=== PATIENT | male | born 1955 | race Caucasian/White ===

== ENCOUNTER 2024-12-23 00:09 | Inpatient (IN) | payer MEDICARE ==
--- NOTE | 2024-12-23 01:50 | ED ---
Chest Pain HPI - General Chief Complaint: Chest Pain Stated Complaint: Chest Pain Time Seen by Provider: 12/23/24 01:43 Source: patient, RN notes reviewed Mode of arrival: ambulatory Limitations: no limitations - History of Present Illness Initial Comments: 69-year-old male with coronary artery disease and carotid artery stenosis presents emergency department for substernal chest pain that woke him from sleep at 2240 on 12/22/2024. He states did that this pain felt like a pressure with mild radiation into his right arm. Pressure was not associated with diaphoresis or nausea. States that the pressure lasted for approximately 40 minutes however is resolved and currently patient is chest pain-free. States that at the time of the pressure he had mild dyspnea. Over the past few weeks he has been experiencing dyspnea on exertion that is exacerbated in the cold weather. Denies orthopnea. 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 Patient is prescribed nitro for his chest pain however states that he did not take this medication when chest pain arose. - Related Data Home Medications Medication Instructions Recorded Confirmed Aspirin EC [Ecotrin Low Dose] 81 mg PO DAILY 12/23/24 12/23/24 Atorvastatin [Lipitor] 80 mg PO DAILY 12/23/24 12/23/24 Clopidogrel [Plavix] 75 mg PO DAILY 12/23/24 12/23/24 Enalapril/Hydrochlorothiazide 2 tab PO DAILY 12/23/24 12/23/24 [Vaseretic 10-25 mg Tablet] Nitroglycerin Sl Tabs [Nitrostat] 0.4 mg SUBLINGUAL Q5M PRN 12/23/24 12/23/24 carvediloL [Coreg] 25 mg PO BID 12/23/24 12/23/24 Allergies Allergy/AdvReac Type Severity Reaction Status Date / Time No Known Allergies Allergy Verified 12/23/24 10:18 Review of Systems ROS Statement: Those systems with pertinent positive or pertinent negative responses have been documented in the HPI. ROS Other: All systems not noted in ROS Statement are negative. Past Medical History Past Medical History: Chest Pain / Angina, Hypertension History of Any Multi-Drug Resistant Organisms: None Reported Past Surgical History: No Surgical Hx Reported Past Psychological History: No Psychological Hx Reported Smoking Status: Current some day smoker Past Alcohol Use History: Occasional Past Drug Use History: None Reported General Exam Limitations: no limitations General appearance: alert, in no apparent distress ENT exam: Present: normal exam, mucous membranes moist Neck exam: Present: normal inspection. Absent: tenderness, meningismus, lymphadenopathy Respiratory exam: Present: normal lung sounds bilaterally. Absent: respiratory distress, wheezes, rales, rhonchi, stridor Cardiovascular Exam: Present: regular rate, normal rhythm, normal heart sounds. Absent: systolic murmur, diastolic murmur, rubs, gallop, clicks GI/Abdominal exam: Present: soft, normal bowel sounds. Absent: distended, tenderness, guarding, rebound, rigid Extremities exam: Present: normal inspection, full ROM, normal capillary refill. Absent: tenderness, pedal edema, joint swelling, calf tenderness Back exam: Present: normal inspection Course Vital Signs 12/23/24 12/23/24 12/23/24 00:16 03:00 06:00 Temperature 98.3 F Pulse Rate 87 67 68 Respiratory 16 18 17 Rate Blood Pressure 158/105 156/97 139/93 O2 Sat by Pulse 98 98 98 Oximetry 12/23/24 12/23/24 12/23/24 09:00 10:25 12:58 Temperature Pulse Rate 81 70 Respiratory 18 18 Rate Blood Pressure 208/124 152/88 140/95 O2 Sat by Pulse 98 Oximetry 12/23/24 13:41 Temperature Pulse Rate 64 Respiratory 18 Rate Blood Pressure 125/87 O2 Sat by Pulse 97 Oximetry Chest Pain MDM - MDM Was pt. sent in by a medical professional or institution (ISAIAS Cruz, CLIENT SUPPORT REPRESENTATIVE, urgent care, hospital, or half-way...) When possible be specific @ -No Did you speak to anyone other than the patient for history (EMS, parent, family, police, friend...)? What history was obtained from this source @ -No Did you review nursing and triage notes (agree or disagree)? Why? @ -I reviewed and agree with nursing and triage notes Were old charts reviewed (outside hosp., previous admission, EMS record, old EKG, old radiological studies, urgent care reports/EKG's, half-way records)? Report findings @ -No old charts were reviewed Differential Diagnosis (chest pain, altered mental status, abdominal pain women, abdominal pain men, vaginal bleeding, weakness, fever, dyspnea, syncope, headache, dizziness, GI bleed, back pain, seizure, CVA, palpatations, mental health, musculoskeletal)? @ -Differential Chest Pain: Stable Angina, Unstable Angina, STEMI, NSTEMI Aortic Dissection, Pneumothorax, Musculoskeletal, Esophageal Spasm GERD, Cholecystitis, Pancreatitis, Zoster, this is not meant to be an all-inclusive list. EKG interpreted by me (3pts min.). @ -Completed at 00 22 sinus rhythm with a ventricular rate of 78, OK interval 194, QRS 85, QTc 406. X-rays interpreted by me (1pt min.). @ -Chest x-ray completed with no acute cardiopulmonary process. CT interpreted by me (1pt min.). @ -None done U/S interpreted by me (1pt. min.). @ -None done What testing was considered but not performed or refused? (CT, X-rays, U/S, labs)? Why? @ -None What meds were considered but not given or refused? Why? @ -None Did you discuss the management of the patient with other professionals (professionals i.e. , PA, CLIENT SUPPORT REPRESENTATIVE, lab, RT, psych nurse, social and human services assistant, sample collector, teacher, parking enforcement officer, case management associate)? Give summary @ -EMH for admission Was smoking cessation discussed for >3mins.? @ -No Was critical care preformed (if so, how long)? @ -No Were there social determinants of health that impacted care today? How? (Homelessness, low income, unemployed, alcoholism, drug addiction, transportation, low edu. Level, literacy, decrease access to med. care, fdc, rehab)? @ -No Was there de-escalation of care discussed even if they declined (Discuss DNR or withdrawal of care, Hospice)? DNR status @ -No What co-morbidities impacted this encounter? (DM, HTN, Smoking, COPD, CAD, Cancer, CVA, ARF, Chemo, Hep., AIDS, mental health diagnosis, sleep apnea, morbid obesity)? @ -None Was patient admitted / discharged? Hospital course, mention meds given and route, prescriptions, significant lab abnormalities, going to OR and other pertinent info. @ -Admitted. 69-year-old male presenting with substernal chest pain. Patient noted be hypertensive on arrival with a blood pressure of 158/105. Overall he is well-appearing and is resting to be chest pain-free. Patient will undergo ACS evaluation including labs, chest x-ray and EKG. EKG is in sinus rhythm. Patient's labs concerning for an NSTEMI with a troponin of 0.096. Patient is agreeable with admission. Will continue to trend troponin enzyme. Additionally, patient provided with aspirin and will be initiated on low intensity heparin with consult to cardiology placed. Undiagnosed new problem with uncertain prognosis? @ -No Drug Therapy requiring intensive monitoring for toxicity (Heparin, Nitro, Insulin, Cardizem)? @ -No Were any procedures done? @ -No Diagnosis/symptom? @ -NSTEMI Acute, or Chronic, or Acute on Chronic? @ -Acute Uncomplicated (without systemic symptoms) or Complicated (systemic symptoms)? @ -Complicated Side effects of treatment? @ -No Exacerbation, Progression, or Severe Exacerbation? @ -No Poses a threat to life or bodily function? How? (Chest pain, USA, VT, pneumonia, PE, COPD, DKA, ARF, appy, cholecystitis, CVA, Diverticulitis, Homicidal, Suicidal, threat to staff... and all critical care pts) @ -No Disposition Clinical Impression: NSTEMI (non-ST elevated myocardial infarction) Disposition: ADMITTED IP TO THIS HOSP Condition: Serious Decision to Admit Reason: Admit from EC
[2024-12-23 02:49] LABS: Basophils # (A) 0.1 k/uL (0-0.2); Basophils % (A) 1 %; Eosinophils # (A) 0.3 k/uL (0-0.7); Eosinophils % (A) 3 %; HCT 45.7 % (39.0-53.0); HGB 14.7 gm/dL (13.0-17.5); Lymphocytes # (A) 2.5 k/uL (1.0-4.8); Lymphocytes % (A) 25 %; MCH 28.8 pg (25.0-35.0); MCHC 32.2 g/dL (31.0-37.0); MCV 89.4 fL (80.0-100.0); Mean Platelet Volume 7.4; Monocytes # (A) 0.7 k/uL (0-1.0); Monocytes % (A) 7 %; Neutrophils # (A) 6.3 k/uL (1.3-7.7); Neutrophils % (A) 63 %; Platelet Count 221 k/uL (150-450); RBC 5.11 m/uL (4.30-5.90); RDW 13.4 % (11.5-15.5); WBC 10.1 k/uL (3.8-10.6)
[2024-12-23 03:04] LABS: Prothrombin Time 11.1 sec (10.0-12.5)
[2024-12-23 03:06] LABS: ALT 21 U/L (4-49); AST 21 U/L (17-59); African American GFR (CKD) 79 (>60 ml/min/1.73 sqM); Albumin 4.2 g/dL (3.5-5.0); Alkaline Phosphatase 54 U/L (38-126); Anion Gap 8 mmol/L; Blood Urea Nitrogen 35 mg/dL (9-20); Calcium 9.5 mg/dL (8.4-10.2); Carbon Dioxide 25 mmol/L (22-30); Chloride 104 mmol/L (98-107); Glucose 98 mg/dL (74-99); Lipase 189 U/L (23-300); Magnesium 2.2 mg/dL (1.6-2.3); Non-African American GFR(CKD) 69 (>60 ml/min/1.73 sqM); Potassium 4.4 mmol/L (3.5-5.1); Sodium 137 mmol/L (137-145); Total Bilirubin 0.5 mg/dL (0.2-1.3); Total Protein 7.1 g/dL (6.3-8.2)
[2024-12-23] MEDS ORDERED: MORPHINE SULFATE 4 MG/ML SYRINGE IV PRN (03:24)
[2024-12-23] MEDS ORDERED: ONDANSETRON 4 MG/2 ML VIAL IVP PRN (03:24)
[2024-12-23] MEDS ORDERED: ACETAMINOPHEN TAB 325 MG TAB PO PRN (03:24)
[2024-12-23] MEDS ORDERED: NALOXONE 0.4 MG/ML 1 ML VIAL IV PRN (03:24)
[2024-12-23] MEDS: HEPARIN SOD,PORK IN 0.45% NACL 25,000 UNIT in 0.45% NACL 1 250ML.BAG IV SCH (03:47)
[2024-12-23] MEDS: HEPARIN SODIUM 1,000 UN/ML (10ML VL) IV ONE (03:48)
[2024-12-23] MEDS: ASPIRIN 81 MG PO STA (03:50)
--- NOTE | 2024-12-23 04:06 | XR ---
EXAM: XR Chest, 2 Views CLINICAL HISTORY: ITS.REASON XR Reason: Chest Pain TECHNIQUE: Frontal and lateral views of the chest. COMPARISON: No relevant prior studies available. FINDINGS: Lungs: Unremarkable. No consolidation. Pleural space: Unremarkable. No pneumothorax. Heart: Unremarkable. No cardiomegaly. Mediastinum: Unremarkable. Bones/joints: Unremarkable. IMPRESSION: No consolidation.
[2024-12-23] MEDS ORDERED: ALPRAZolam 0.5 MG TAB PO PRN (08:53)
[2024-12-23] MEDS ORDERED: NITROGLYCERIN SL TABS 0.4 MG TAB SUBLINGUAL PRN (08:53)
[2024-12-23] MEDS ORDERED: ALPRAZolam 0.25 MG TAB PO PRN (08:53)
[2024-12-23] MEDS: ATORVASTATIN 80 MG TAB PO STA (09:09)
[2024-12-23] MEDS: ASPIRIN 81 MG PO SCH (09:09)
[2024-12-23] MEDS: carvediloL 12.5 MG TAB PO SCH (09:09)
[2024-12-23] MEDS: ASPIRIN 325 MG TAB PO STA (09:09)
[2024-12-23] MEDS: hydrALAZINE HCL 25 MG TAB PO STA (09:20)
[2024-12-23] MEDS: LISINOPRIL-HCTZ 20-25 MG 1 EACH TAB PO SCH (09:20)
[2024-12-23 09:30] LABS: Chol/HDL Ratio 4.55 Ratio; VLDL Calculation 11.72 mg/dL (5.00-40.00)
--- NOTE | 2024-12-23 10:11 | P.CRDCN ---
History of Present Illness History of present illness: HISTORY OF PRESENT ILLNESS: This is a 69-year-old male with a past medical history significant for hypertension, carotid stenosis with previous right carotid endarterectomy, and occasional cigar use. Patient follows in the office with Dr. Covarrubias. We have been asked to see the patient in consultation for non-STEMI. Patient examined at the bedside in the emergency room. Patient states he was sleeping when he was awoken with chest discomfort. He states that he was having chest pressure in the middle of his chest that radiated into his right arm. He also reports feeling short of breath. He states the pain lasted for about 45 minutes. He decided to come to the emergency room for further evaluation. Patient was found to have elevated troponins and was started on IV heparin. He denies any further episodes of chest discomfort since being in the hospital. Patient recently esta blished in the office with Dr. Covarrubias and was supposed to follow-up today in the office for results of his stress test and carotid Doppler DIAGNOSTICS: - EKG reveals sinus mechanism with no signs of acute ischemia. Baseline artifact.. - Chest xray negative for acute process. - Laboratory data: WBC 10.1. Hemoglobin 14.7. Platelet count 221. Sodium 137. Potassium 4.4. BUN 35. Creatinine 1.11. Magnesium 2.2. Troponin 0.096. 0.346. - Current home cardiac medications include aspirin 81 mg daily, atorvastatin 40 mg at night, carvedilol 25 mg twice a day, and enalaprilhydrochlorothiazide 10- 25 mg daily. - Carotid Doppler performed in the office on 12/10/2024 revealed less than 50% stenosis of bilateral internal carotid arteries REVIEW OF SYSTEMS: At the time of my exam: CONSTITUTIONAL: Denies fever or chills. HEENT: Denies blurred vision, vision changes, or eye pain. Denies hemoptysis CARDIOVASCULAR: Denies chest pain. Denies orthopnea. Denies PND. Denies palpitations RESPIRATORY: Denies shortness of breath. GASTROINTESTINAL: Denies abdominal pain. Denies nausea or vomiting. HEMATOLOGIC: Denies bleeding disorders. GENITOURINARY: Denies any blood in urine. SKIN: Denies pruitis. Denies rash. PHYSICAL EXAM: VITAL SIGNS: Reviewed. GENERAL: Well-developed in no acute distress. HEENT: Head is normocephalic. Pupils are equal, round. Sclerae anicteric. Mucous membranes of the mouth are moist. Neck supple. No JVD or thyromegaly LUNGS: Respirations even and unlabored. Lungs essentially clear to auscultation bilaterally. HEART: Regular rate and rhythm. S1 and S2 heard. ABDOMEN: Soft. Nondistended. Nontender. EXTREMITIES: Normal range of motion. No clubbing or cyanosis. Peripheral pulses intact. No lower extremity edema NEUROLOGIC: Awake and alert. Oriented x 3. ASSESSMENT: Non-STEMI Hypertension History of carotid stenosis with previous right carotid endarterectomy, 2017 Occasional cigar use PLAN: Obtain 2D echo to assess cardiac structure and function Resume home cardiac medications including aspirin, atorvastatin, carvedilol, and enalaprilhydrochlorothiazide Continue IV heparin Patient to undergo cardiac catheterization today with Dr. Covarrubias Further recommendations pending patient course Nurse practitioner note has been reviewed by physician. Signing provider agrees with the documented findings, assessment, and plan of care documented by ACCURACY EXPERT as a scribe. Past Medical History Past Medical History: Chest Pain / Angina, Hypertension History of Any Multi-Drug Resistant Organisms: None Reported Past Surgical History: No Surgical Hx Reported Past Psychological History: No Psychological Hx Reported Smoking Status: Current some day smoker Past Alcohol Use History: Occasional Past Drug Use History: None Reported Medications and Allergies Allergies Allergy/AdvReac Type Severity Reaction Status Date / Time No Known Allergies Allergy Verified 12/23/24 00:22 Physical Exam Vitals: Vital Signs Temp Pulse Resp BP Pulse Ox 12/23/24 06:00 68 17 139/93 98 12/23/24 03:00 67 18 156/97 98 12/23/24 00:16 98.3 F 87 16 158/105 98 Intake and Output 12/22/24 12/23/24 12/23/24 22:59 06:59 14:59 Other: Weight 90.718 kg Results 12/23/24 02:12 12/23/24 02:12 Cardiac Enzymes 12/23/24 12/23/24 12/23/24 Range/Units 02:12 02:12 05:44 AST 21 (17-59) U/L Troponin I 0.096 H* 0.346 H* (0.000-0.034) ng/mL Coagulation 12/23/24 Range/Units 02:12 PT 11.1 (10.0-12.5) sec APTT 24.0 (22.0-30.0) sec CBC 12/23/24 Range/Units 02:12 WBC 10.1 (3.8-10.6) k/uL RBC 5.11 (4.30-5.90) m/uL Hgb 14.7 (13.0-17.5) gm/dL Hct 45.7 (39.0-53.0) % Plt Count 221 (150-450) k/uL Comprehensive Metabolic Panel 12/23/24 Range/Units 02:12 Sodium 137 (137-145) mmol/L Potassium 4.4 (3.5-5.1) mmol/L Chloride 104 (98-107) mmol/L Carbon Dioxide 25 (22-30) mmol/L BUN 35 H (9-20) mg/dL Creatinine 1.11 (0.66-1.25) mg/dL Glucose 98 (74-99) mg/dL Calcium 9.5 (8.4-10.2) mg/dL AST 21 (17-59) U/L ALT 21 (4-49) U/L Alkaline Phosphatase 54 (38-126) U/L Total Protein 7.1 (6.3-8.2) g/dL Albumin 4.2 (3.5-5.0) g/dL Current Medications Generic Name Dose Route Start Last Admin Trade Name Freq PRN Reason Stop Dose Admin Acetaminophen 650 mg 12/23/24 03:24 Acetaminophen Tab 325 Mg Tab PO Q6HR PRN Mild Pain or Fever > 100.5 Heparin Sodium (Porcine) 0 unit 12/23/24 03:26 Heparin Sodium 1,000 Un/Ml (10ml Vl) IV PER PROTOCOL PRN Low PTT Protocol Heparin Sodium/Sodium Chloride 250 mls @ 9.997 mls/hr 12/23/24 03:30 12/23/24 03:47 25,000 unit/ Sodium Chloride IV 11.02 units/kg/hr .Q24H GLYNN 9.997 mls/hr Administration Protocol 11.02 UNITS/KG/HR Morphine Sulfate 4 mg 12/23/24 03:24 Morphine Sulfate 4 Mg/Ml Syringe IV Q4HR PRN Severe Pain (Scale 7 to 10) Naloxone HCl 0.2 mg 12/23/24 03:24 Naloxone 0.4 Mg/Ml 1 Ml Vial IV Q2M PRN Opioid Reversal Ondansetron HCl 4 mg 12/23/24 03:24 Ondansetron 4 Mg/2 Ml Vial IVP Q8HR PRN Nausea And Vomiting Intake and Output 12/22/24 12/23/24 12/23/24 22:59 06:59 14:59 Other: Weight 90.718 kg 12/23/24 02:12 12/23/24 02:12
[2024-12-23] MEDS: SODIUM CHLORIDE 0.9% 1,000 ML in EMPTY BAG 1 BAG IV SCH (11:30)
[2024-12-23] MEDS: HEPARIN SODIUM 1,000 UN/ML (10ML VL) IV PRN (12:04)
[2024-12-23] MEDS: amLODIPine 10 MG TAB PO SCH (13:54)
[2024-12-23] MEDS: MIDAZOLAM 2 MG/2 ML VIAL IVP ONE (14:46)
[2024-12-23] MEDS: fentaNYL (PF) 50 MCG/1 ML VIAL IVP ONE (14:46)
[2024-12-23] MEDS: LIDOCAINE 1% INJ 10MG/ML (30 ML VIAL-PF) SQ ONE ×2 (14:46→14:48)
[2024-12-23] MEDS: VERAPAMIL SYRINGE (5 MG/10 ML) INTRAARTER ONE (14:48)
--- NOTE | 2024-12-23 15:13 | P.HPIM ---
History of Present Illness H&P Date: 12/23/24 Chief Complaint: Chest pain Patient is a this is a 69-year-old male with a history of hypertension presents the ER with sudden onset substernal chest pain which woke him up around 9 PM yesterday evening. Patient reports that he felt pressure-like substernal chest pain, 9 out of 10, nonradiating, associated with mild shortness of breath and feeling cold. Patient has been experiencing intermittent chest pain for the past couple months associated with exertion. Patient reports that he fell substernal chest pain in the gym while he was doing elliptical exercise. Makenzie rodriguez had a cardiac evaluation 3 to 4 years [address] done by Dr[address] Fuller where he found to have LAD pathology. Patient denies any history of CAD and or CVA. Strong family history of ID and stroke in father and brother. Patient is a chronic cigarette smoker. Drinks alcohol occasionally. Denies use of rec reational drugs. Initial laboratory evaluation shows troponin I 0.096, 0.346, 0.294. WBC 10.1, hemoglobin 14.7, platelet count 221, sodium 137, potassium 4.4, chloride 104, bicarb 25, BUN 35, creatinine 1.1. EKG shows sinus rhythm with ventricular rate of 78 bpm, IL interval 194, QRS duration 85, QTc 4 6. Poor R wave progression. Nonspecific ST/T wave changes noted. Chest x-ray shows no acute cardiopulmonary process. Vital signs on arrival shows temperature 98.3 F, pulse rate 87, blood pressure 158/105, oxygen saturation 98% on room air. Review of systems: Pertinent positives and negatives as discussed in HPI, a complete review of systems was performed and all other systems are negative. Social history: As above in HPI Family History: As above in HPI Physical examination: Vital signs reviewed General: non toxic, no distress, appears at stated age, overweight Derm: no unusual rashes/lesions, warm Head: atraumatic, normocephalic, symmetric Eyes: EOMI, no lid lag, anicteric sclera, pupils equal round reactive to light ENT: Nose and ears atraumatic Neck: No cervical lymphadenopathy, trachea midline, supple Mouth: no lip lesion, mucus membranes moist Cardiovascular: S1S2 reg, no murmur, positive dorsalis pedis pulse bilateral, no edema Lungs: CTA bilateral, no rhonchi, no rales, no accessory muscle use Abdominal: soft, nontender to palpation, no guarding Ext: muscle strength 5 out of 5 in all 4 extremities grossly, no gross muscle atrophy, no contractures, Neuro: CN II-XI grossly intact, no gross focal neuro deficits Psych: Alert, oriented, appropriate affect Assessment/Plan: This is a Patient is a this is a 69-year-old male with a history of hypertension presents the ER with sudden onset substernal chest pain which woke him up around 9 PM yesterday evening. . Case was discussed with the Emergency Room provider and decision was made to admit the patient for NSTEMI. Labs and images: Laboratory evaluation shows troponin I 0.096, 0.346, 0.294. WBC 10.1, hemoglobin 14.7, platelet count 221, sodium 137, potassium 4.4, chloride 104, bi carb 25, BUN 35, creatinine 1.1. EKG shows sinus rhythm with ventricular rate of 78 bpm, IL interval 194, QRS duration 85, QTc 4 6. Poor R wave progression. Nonspecific ST/T wave changes noted. Chest x-ray shows no acute cardiopulmonary process. Active: #NSTEMI Aspirin 81 mg p.o. daily Lipitor 80 mg p.o. at bedtime IV morphine 4 mg as needed Oxygen therapy as needed Carvedilol 25 mg p.o. twice daily Heparin drip RIGOBERTO risk score for NSTEMI is 4 points which is 20% risk at 14 days for all cause mortality. Consult cardiology Order lipid panel Order echocardiogram Heart healthy diet CBC and BMP tomorrow a.m. #Hypertension Amlodipine 10 mg p.o. daily LisinoprilHCTZ 20-25 mg p.o. daily DVT prophylaxis: Heparin drip GI prophylaxis: None F: None E: Replete as needed N: Heart healthy diet A: Ambulatory at baseline The patient is admitted with an anticipated < than 2 midnight stay for evaluation of NSTEMI CODE STATUS: Full code Discussed with: Patient Anticipated discharge place: Pending clinical course Dictation was produced using Tagged dictation software. Please excuse any grammatical, word or spelling errors. Attestation I have seen and examined this patient with my resident , discussed the same with the resident/SIDNEY, and agree with the dictator's assessment and plan as written GENERAL: The patient is alert and oriented x3, not in any acute distress. Well developed, well nourished. HEENT: Pupils are round and equally reacting to light. EOMI. No scleral icterus. No conjunctival pallor. Normocephalic, atraumatic. No pharyngeal erythema. No thyromegaly. CARDIOVASCULAR: S1 and S2 present. No murmurs, rubs, or gallops. PULMONARY: Chest is clear to auscultation, no wheezing or crackles. ABDOMEN: Soft, nontender, nondistended, normoactive bowel sounds. No palpable organomegaly. MUSCULOSKELETAL: No joint swelling or deformity. EXTREMITIES: No cyanosis, clubbing, or pedal edema. NEUROLOGICAL: Gross neurological examination did not reveal any focal deficits. SKIN: No rashes. Dr. Sagar lan Past Medical History Past Medical History: Chest Pain / Angina, Hypertension History of Any Multi-Drug Resistant Organisms: None Reported Past Surgical History: No Surgical Hx Reported Past Psychological History: No Psychological Hx Reported Smoking Status: Current some day smoker Past Alcohol Use History: Occasional Past Drug Use History: None Reported Medications and Allergies Home Medications Medication Instructions Recorded Confirmed Type Aspirin EC [Ecotrin Low Dose] 81 mg PO DAILY 12/23/24 12/23/24 History Atorvastatin [Lipitor] 80 mg PO DAILY 12/23/24 12/23/24 History Clopidogrel [Plavix] 75 mg PO DAILY 12/23/24 12/23/24 History Enalapril/Hydrochlorothiazide 2 tab PO DAILY 12/23/24 12/23/24 History [Vaseretic 10-25 mg Tablet] Nitroglycerin Sl Tabs [Nitrostat] 0.4 mg SUBLINGUAL Q5M PRN 12/23/24 12/23/24 History carvediloL [Coreg] 25 mg PO BID 12/23/24 12/23/24 History Allergies Allergy/AdvReac Type Severity Reaction Status Date / Time No Known Allergies Allergy Verified 12/23/24 10:18 Physical Exam Vitals: Vital Signs Temp Pulse Resp BP Pulse Ox 12/23/24 13:41 64 18 125/87 97 12/23/24 12:58 70 18 140/95 12/23/24 10:25 152/88 12/23/24 09:00 81 18 208/124 98 12/23/24 06:00 68 17 139/93 98 12/23/24 03:00 67 18 156/97 98 12/23/24 00:16 98.3 F 87 16 158/105 98 Intake and Output 12/23/24 12/23/24 12/23/24 06:59 14:59 22:59 Intake Total 110.140 Balance 110.140 Intake: Intake, IV Titration 110.140 Amount Heparin Sod,Pork in 0.45% 110.140 NaCl 25,000 unit In 0.45 % NaCl 1 250ml.bag @ 11. 02 UNITS/KG/HR 9.997 mls/ hr IV .Q24H [facility] Rx#: [id number] Other: Weight 90.718 kg Results CBC & Chem 7: 12/24/24 06:41 12/24/24 06:41 Labs: Abnormal Lab Results - Last 24 Hours (Table) 12/23/24 12/23/24 12/23/24 Range/Units 02:12 02:12 05:44 APTT (22.0-30.0) sec BUN 35 H (9-20) mg/dL Troponin I 0.096 H* 0.346 H* (0.000-0.034) ng/mL HDL Cholesterol (40.00-60.00) mg/dL 12/23/24 12/23/24 12/23/24 Range/Units 05:44 10:39 10:39 APTT 34.8 H (22.0-30.0) sec BUN (9-20) mg/dL Troponin I 0.294 H* (0.000-0.034) ng/mL HDL Cholesterol 34.30 L (40.00-60.00) mg/dL
[2024-12-23] MEDS: IOPAMIDOL-370 100ML BTL INJ ONE ×3 (15:24→19:26)
[2024-12-23] MEDS: SODIUM CHLORIDE 0.9% 1,000 ML IV ONE ×2 (15:25→18:14)
[2024-12-23] MEDS: HEPARIN SODIUM,PORCINE (1 ML) 2,500 UNIT in SODIUM CHLORIDE 0.9% 250 ML IRRIGATION PRN (15:25)
[2024-12-23] MEDS: HEPARIN SODIUM,PORCINE 10,000 UNIT in SODIUM CHLORIDE 0.9% 1,000 ML IRRIGATION PRN (15:25)
[2024-12-23] MEDS: HEPARIN SODIUM,PORCINE 10,000 UNIT in SODIUM CHLORIDE 0.9% 1,000 ML IRRIGATION ONE (18:14)
[2024-12-23] MEDS: HEPARIN SODIUM,PORCINE (1 ML) 2,500 UNIT in SODIUM CHLORIDE 0.9% 250 ML IRRIGATION ONE (18:15)
[2024-12-23] MEDS: fentaNYL (PF) 50 MCG/ML 2 ML AMP IVP ONE (18:16)
[2024-12-23] MEDS: LIDOCAINE 1% INJ 10MG/ML (20 ML MDV) SQ ONE (18:19)
[2024-12-23] MEDS: HEPARIN SODIUM 1,000 UN/ML (10ML VL) IVP ONE ×2 (18:22→18:36)
[2024-12-23] MEDS: PRASUGREL 10 MG TAB PO ONE (18:24)
[2024-12-23] MEDS ORDERED: RX INFO: IV CONTRAST WAS GIVEN 1 EACH MISC MISCELLANE PRN (19:37)
--- NOTE | 2024-12-23 19:45 | P.PCN ---
Date of Procedure: 12/23/24 Description of Procedure: Angioplasty: Patient is a 69-year-old male with a known history of hypertension and hyperlipidemia who presented with chest discomfort and mild troponin elevation consistent with non-STEMI. He underwent coronary angiography by Dr. Covarrubias and was found to have a subtotally occluded proximal left circumflex. Recommendation were made regarding coronary angioplasty and stenting, the procedure as well as the risks and the complications were discussed with the patient who was in full understanding and agreement Procedure: The patient was brought to the Registered Nurses in the fasting semisedated state, using Xylocaine anesthesia the 6 [place] sheath in the right femoral artery was excha nged to a 6 [place] sheath. Attempt to cannulate the left main using a 6 [place] EBU 3.75, CLS 4, FL 4, FL 3-1/2, Q curve 4, L BU 3.75 were all unsuccessful in cannulating the left main. At that time and because of the contrast threshold the decision was made to stop. The patient was stable and had no chest discomfort. He received a total of 8000 units of heparin and an oral loading dose of Effient. The sheath was removed hemostasis was obtained with deployment of an Angio-Seal. He was returned to his room in stable condition. Conclusion: The patient will be brought back in 48 hours depending on his renal function to attempt to cannulate the left main and proceed with angioplasty and stenting of the left circumflex. The recommendations were discussed with the patient and his family, they are in full understanding and agreement. Duration of sedation 70 minutes.
[2024-12-23 22:45] LABS: African American GFR (CKD) 76 (>60 ml/min/1.73 sqM); Anion Gap 6 mmol/L; Blood Urea Nitrogen 21 mg/dL (9-20); Carbon Dioxide 25 mmol/L (22-30); Chloride 103 mmol/L (98-107); Glucose 112 mg/dL (74-99); Non-African American GFR(CKD) 65 (>60 ml/min/1.73 sqM); Potassium 4.1 mmol/L (3.5-5.1); Sodium 134 mmol/L (137-145)
[2024-12-23] MEDS: SODIUM CHLORIDE 0.9% 1,000 ML IV SCH (23:31)
[2024-12-23] MEDS: ATORVASTATIN 80 MG TAB PO SCH (23:36)
[2024-12-24 07:16] LABS: Basophils % (A) 0 %; Eosinophils # (A) 0.1 k/uL (0-0.7); Eosinophils % (A) 1 %; HCT 41.3 % (39.0-53.0); HGB 13.2 gm/dL (13.0-17.5); Lymphocytes # (A) 2.3 k/uL (1.0-4.8); Lymphocytes % (A) 19 %; MCH 28.5 pg (25.0-35.0); MCHC 31.9 g/dL (31.0-37.0); MCV 89.2 fL (80.0-100.0); Mean Platelet Volume 7.2; Monocytes # (A) 0.8 k/uL (0-1.0); Monocytes % (A) 7 %; Neutrophils # (A) 8.5 k/uL (1.3-7.7); Neutrophils % (A) 72 %; Platelet Count 210 k/uL (150-450); RBC 4.63 m/uL (4.30-5.90); RDW 13.4 % (11.5-15.5); WBC 11.9 k/uL (3.8-10.6)
[2024-12-24 07:42] LABS: ALT 19 U/L (4-49); AST 22 U/L (17-59); African American GFR (CKD) 83 (>60 ml/min/1.73 sqM); Albumin 3.7 g/dL (3.5-5.0); Alkaline Phosphatase 59 U/L (38-126); Anion Gap 7 mmol/L; Blood Urea Nitrogen 21 mg/dL (9-20); Calcium 8.8 mg/dL (8.4-10.2); Carbon Dioxide 24 mmol/L (22-30); Chloride 104 mmol/L (98-107); Glucose 99 mg/dL (74-99); Non-African American GFR(CKD) 72 (>60 ml/min/1.73 sqM); Potassium 3.8 mmol/L (3.5-5.1); Sodium 135 mmol/L (137-145); Total Bilirubin 1.1 mg/dL (0.2-1.3); Total Protein 6.5 g/dL (6.3-8.2)
[2024-12-24] MEDS ORDERED: ALPRAZolam 0.25 MG TAB PO PRN (08:21)
[2024-12-24] MEDS ORDERED: NITROGLYCERIN SL TABS 0.4 MG TAB SUBLINGUAL PRN (08:21)
[2024-12-24] MEDS ORDERED: ALPRAZolam 0.5 MG TAB PO PRN (08:21)
[2024-12-24] MEDS: CLOPIDOGREL 75 MG TAB PO SCH (09:01)
[2024-12-24] MEDS: EZETIMIBE 10 MG TAB PO SCH (09:01)
--- NOTE | 2024-12-24 12:36 | P.PN ---
Subjective Progress Note Date: 12/24/24 HISTORY OF PRESENT ILLNESS: This is a 69-year-old male with a past medical history significant for hype rtension, carotid stenosis with previous right carotid endarterectomy, and occasional cigar use. Patient follows in the office with Dr. Covarrubias. We have been asked to see the patient in consultation for non-STEMI. Patient examined at the bedside in the emergency room. Patient states he was sleeping when he was awoken with chest discomfort. He states that he was having chest pressure in the middle of his chest that radiated into his right arm. He also reports feeling short of breath. He states the pain lasted for about 45 minutes. He decided to come to the emergency room for further evaluation. Patient was found to have elevated troponins and was started on IV heparin. He denies any further episodes of chest discomfort since being in the hospital. Patient recently established in the office with Dr. Covarrubias and was supposed to follow-up today in the office for results of his stress test and carotid Doppler DIAGNOSTICS: - EKG reveals sinus mechanism with no signs of acute ischemia. Baseline artifact.. - Chest xray negative for acute process. - Laboratory data: WBC 10.1. Hemoglobin 14.7. Platelet count 221. Sodium 137. Potassium 4.4. BUN 35. Creatinine 1.11. Magnesium 2.2. Troponin 0.096. 0.346. - Current home cardiac medications include aspirin 81 mg daily, atorvastatin 40 mg at night, carvedilol 25 mg twice a day, and enalaprilhydrochlorothiazide 10- 25 mg daily. - Carotid Doppler performed in the office on 12/10/2024 revealed less than 50% stenosis of bilateral internal carotid arteries 12/24 Patient seen and examined on the cardiac stepdown unit. Yesterday, patient underwent cardiac catheterization with Dr. Estrada finding subtotally occluded proximal left circumflex. It was recommended the patient undergo angioplasty and stenting. There was unsuccessful cannulation of the left main and due to the contrast threshold, the procedure was stopped and patient will be rescheduled tomorrow for PCI with Dr. Yee. Patient denies having chest pain, no shortness of breath, no lightheadedness or dizziness. Blood pressure 113/57, heart rate 64, pulse ox 97% on room air. Repeat blood work reveals WBC 11.9, hemoglobin 13.2, BUN 21 creatinine 1.07. Echocardiogram is pending. PHYSICAL EXAM: VITAL SIGNS: Reviewed. GENERAL: Well-developed in no acute distress. HEENT: Head is normocephalic. Pupils are equal, round. Sclerae anicteric. Mucous membranes of the mouth are moist. Neck supple. No JVD or thyromegaly LUNGS: Respirations even and unlabored. Lungs essentially clear to auscultation bilaterally. HEART: Regular rate and rhythm. S1 and S2 heard. ABDOMEN: Soft. Nondistended. Nontender. EXTREMITIES: Normal range of motion. No clubbing or cyanosis. Peripheral pulses intact. No lower extremity edema NEUROLOGIC: Awake and alert. Oriented x 3. ASSESSMENT: Non-STEMI Hypertension History of carotid stenosis with previous right carotid endarterectomy, 2017 Occasional cigar use PLAN: Obtain 2D echo to assess cardiac structure and function Continue home cardiac medications including aspirin, atorvastatin, carvedilol, and enalaprilhydrochlorothiazide Patient to undergo PCI tomorrow with Dr. Yee Further recommendations pending patient course Nurse practitioner note has been reviewed by physician. Signing provider agrees with the documented findings, assessment, and plan of care documented by SIDE PULLER as a scribe. Objective - Vital Signs Vital signs: Vital Signs Temp 98.0 F 12/24/24 04:00 Pulse 67 12/24/24 04:00 Resp 17 12/24/24 04:00 BP 100/63 12/24/24 04:00 Pulse Ox 94 L 12/24/24 04:00 FiO2 Intake & Output 12/23/24 12/24/24 12/24/24 18:59 06:59 18:59 Intake Total 910.140 240 120 Output Total 400 Balance 510.140 240 120 Weight 90.718 kg Intake: IV 800 Intake, IV Titration 110.140 Amount Heparin Sod,Pork in 0.45% 110.140 NaCl 25,000 unit In 0.45 % NaCl 1 250ml.bag @ 11. 02 UNITS/KG/HR 9.997 mls/ hr IV .Q24H [facility] Rx#: [id number] Oral 240 120 Output: Urine 400 Other: Voiding Method Urinal # Voids 2 - Labs CBC & Chem 7: 12/24/24 06:41 12/24/24 06:41 Labs: Abnormal Lab Results - Last 24 Hours (Table) 12/23/24 12/23/24 12/23/24 Range/Units 05:44 10:39 10:39 WBC (3.8-10.6) k/uL Neutrophils # (1.3-7.7) k/uL APTT 34.8 H (22.0-30.0) sec Sodium (137-145) mmol/L BUN (9-20) mg/dL Glucose (74-99) mg/dL Calcium (8.4-10.2) mg/dL Troponin I 0.294 H* (0.000-0.034) ng/mL HDL Cholesterol 34.30 L (40.00-60.00) mg/dL 12/23/24 12/24/24 12/24/24 Range/Units 21:48 06:41 06:41 WBC 11.9 H (3.8-10.6) k/uL Neutrophils # 8.5 H (1.3-7.7) k/uL APTT (22.0-30.0) sec Sodium 134 L 135 L (137-145) mmol/L BUN 21 H 21 H (9-20) mg/dL Glucose 112 H (74-99) mg/dL Calcium 8.0 L (8.4-10.2) mg/dL Troponin I (0.000-0.034) ng/mL HDL Cholesterol (40.00-60.00) mg/dL
--- NOTE | 2024-12-24 13:08 | P.PN ---
Subjective Progress Note Date: 12/24/24 Hospital Course: Patient is a this is a 69-year-old male with a history of hypertension presents the ER with sudden onset substernal chest pain which woke him up around 9 PM yesterday evening. Patient reports that he felt pressure-like substernal chest pain, 9 out of 10, nonradiating, associated with mild shortness of breath and feeling cold. Patient has been experiencing intermittent chest pain for the past couple months associated with exertion. Patient reports that he fell substernal chest pain in the gym while he was doing elliptical exercise. Patient had a cardiac evaluation 3 to 4 years ago done by Dr. Fuller where he found to have LAD pathology. Patient denies any history of CAD and or CVA. Strong family history of [place] and stroke in father and brother. Patient is a chronic cigarette smoker. Drinks alcohol occasionally. Denies use of recreational drugs. Initial laboratory evaluation shows troponin I 0.096, 0.346, 0.294. WBC 10.1, hemoglobin 14.7, platelet count 221, sodium 137, potassium 4.4, chloride 104, bicarb 25, BUN 35, creatinine 1.1. EKG shows sinus rhythm with ventricular rate of 78 bpm, NM interval 194, QRS duration 85, QTc 4 6. Poor R wave progression. Nonspecific ST/T wave changes noted. Chest x-ray shows no acute cardiopulmonary process. Vital signs on arrival shows temperature 98.3 F, pulse rate 87, blood pressure 158/105, oxygen saturation 98% on room air. Cardiology was consulted. Cardiac catheterization showed subtotally occluded proximal left circumflex. Patient underwent an unsuccessful cannulation of the left main artery and because of the contrast threshold the procedure was stopped on 12/23/2024. Subjective: Patient seen and examined at the bedside. Patient underwent an unsuccessful cannulation of the left main artery and because of the contrast threshold the procedure was stopped. Patient did undergo another PCI attempt tomorrow by Dr. Yee. Otherwise, patient denies chest pain, shortness of breath. All Systems reviewed and pertinent positives and negatives noted in HPI, all other symptoms are negative Objective: Vital signs reviewed. General: non toxic, no distress, appears at stated age, normal weight Derm: no unusual rashes/lesions, warm Head: atraumatic, normocephalic, symmetric Eyes: EOMI, no lid lag, anicteric sclera, pupils equal round reactive to light ENT: Nose and ears atraumatic Neck: No cervical lymphadenopathy, trachea midline, supple Mouth: no lip lesion, mucus membranes moist Cardiovascular: S1S2 reg, no murmur, positive dorsalis pedis pulse bilateral, no edema Lungs: CTA bilateral, no rhonchi, no rales, no accessory muscle use Abdominal: soft, nontender to palpation, no guarding Ext: muscle strength 5 out of 5 in all 4 extremities grossly, no gross muscle atrophy, no contractures, Neuro: CN II-XI grossly intact, no gross focal neuro deficits Psych: Alert, oriented, appropriate affect Data reviewed today: Pertinent Labs: WBC 11.9, hemoglobin 13.2, sodium 135, potassium 3.2, BUN 21, creatinine 1.09 Images: No new imaging Assessment and Plan: #NSTEMI Aspirin 81 mg p.o. daily Lipitor 80 mg p.o. at bedtime IV morphine 4 mg as needed Oxygen therapy as needed Carvedilol 25 mg p.o. twice daily Heparin drip RIGOBERTO risk score for NSTEMI is 4 points which is 20% risk at 14 days for all cause mortality. Cardiology on board; patient to go second attempt for PCI tomorrow Order echocardiogram Heart healthy diet CBC and BMP tomorrow a.m. #Hypertension Amlodipine 10 mg p.o. daily Lisinopril-HCTZ 20-25 mg p.o. daily DVT prophylaxis: Heparin drip GI prophylaxis: None F: None E: Replete as needed N: Heart healthy diet A: Ambulatory at baseline CODE STATUS: Full code Discussed with: Patient Anticipated discharge place: Pending clinical course Dictation was produced using [employer] dictation software. Please excuse any grammatical, word or spelling errors. Attestation I have seen and examined this patient with my resident , discussed the same with the resident/SIDNEY, and agree with the dictator's assessment and plan as written GENERAL: The patient is alert and oriented x3, not in any acute distress. Well developed, well nourished. HEENT: Pupils are round and equally reacting to light. EOMI. No scleral icterus. No conjunctival pallor. Normocephalic, atraumatic. No pharyngeal erythema. No thyromegaly. CARDIOVASCULAR: S1 and S2 present. No murmurs, rubs, or gallops. PULMONARY: Chest is clear to auscultation, no wheezing or crackles. ABDOMEN: Soft, nontender, nondistended, normoactive bowel sounds. No palpable o rganomegaly. MUSCULOSKELETAL: No joint swelling or deformity. EXTREMITIES: No cyanosis, clubbing, or pedal edema. NEUROLOGICAL: Gross neurological examination did not reveal any focal deficits. SKIN: No rashes. Dr. Sagar lan Objective - Vital Signs Vital signs: Vital Signs Temp 98.0 F 12/24/24 04:00 Pulse 67 12/24/24 12:38 Resp 16 12/24/24 12:38 BP 111/73 12/24/24 12:38 Pulse Ox 97 12/24/24 12:38 FiO2 Intake & Output 12/23/24 12/24/24 12/24/24 18:59 06:59 18:59 Intake Total 910.140 240 120 Output Total 400 Balance 510.140 240 120 Weight 90.718 kg Intake: IV 800 Intake, IV Titration 110.140 Amount Heparin Sod,Pork in 0.45% 110.140 NaCl 25,000 unit In 0.45 % NaCl 1 250ml.bag @ 11. 02 UNITS/KG/HR 9.997 mls/ hr IV .Q24H [facility] Rx#: [id number] Oral 240 120 Output: Urine 400 Other: Voiding Method Urinal Urinal # Voids 2 - Labs CBC & Chem 7: 12/25/24 07:26 12/26/24 08:21 Labs: Abnormal Lab Results - Last 24 Hours (Table) 12/23/24 12/23/24 12/24/24 Range/Units 10:39 21:48 06:41 WBC 11.9 H (3.8-10.6) k/uL Neutrophils # 8.5 H (1.3-7.7) k/uL Sodium 134 L (137-145) mmol/L BUN 21 H (9-20) mg/dL Glucose 112 H (74-99) mg/dL Calcium 8.0 L (8.4-10.2) mg/dL Troponin I 0.294 H* (0.000-0.034) ng/mL 12/24/24 Range/Units 06:41 WBC (3.8-10.6) k/uL Neutrophils # (1.3-7.7) k/uL Sodium 135 L (137-145) mmol/L BUN 21 H (9-20) mg/dL Glucose (74-99) mg/dL Calcium (8.4-10.2) mg/dL Troponin I (0.000-0.034) ng/mL
--- NOTE | 2024-12-24 14:42 | CA ---
Transthoracic Echo Report Name: Sai Mcginnis Age: 69 Gender: M : 1955 Exam Date: 12/24/2024 07:50 Exam Location: [facility] Ht (in): 69 Wt (lb): 200 Ordering Physician: Shala Klein Attending/Referring Phys: [id number], Latoya [employer] Supervisor Jessica Putnam, KAYLA Procedure CPT: Indications: LV function, elevated trops, CP Cardiac Hx: Technical Quality: Technically difficult study Contrast 1: Definity Total Dose (mL): 2 Contrast 2: Total Dose (mL): MEASUREMENTS (Male / Female) Normal Values 2D ECHO LV Diastolic Diameter PLAX 4.7 cm 4.2 - 5.9 / 3.9 - 5.3 cm LV Systolic Diameter PLAX 3.3 cm IVS Diastolic Thickness 1.1 cm 0.6 - 1.0 / 0.6 - 0.9 cm LVPW Diastolic Thickness 1.0 cm 0.6 - 1.0 / 0.6 - 0.9 cm LV Relative Wall Thickness 0.5 RV Internal Dim ED PLAX 3.6 cm LA Systolic Diameter LX 4.0 cm 3.0 - 4.0 / 2.7 - 3.8 cm M-MODE Aortic Root Diameter MM 3.1 cm DOPPLER AV Peak Velocity 159.9 cm/s AV Peak Gradient 10.2 mmHg TR Peak Velocity 228.4 cm/s TR Peak Gradient 20.9 mmHg Right Ventricular Systolic Press 30.9 mmHg FINDINGS Left Ventricle Left ventricular ejection fraction is estimated at 60-65 %. Left ventricular cavity size normal. Mildly increased septal wall thickness. Normal left ventricular wall motion. Right Ventricle Mild right ventricular dilatation. Right ventricular systolic pressure within normal limits. Right Atrium Normal right atrial size. No right atrial thrombus or mass seen. Left Atrium Normal left atrial size. No left atrial thrombus or mass present. Mitral Valve Structurally normal mitral valve. No mitral stenosis, regurgitation or prolapse. Aortic Valve Trileaflet aortic valve. No aortic valve stenosis or regurgitation. Tricuspid Valve Structurally normal tricuspid valve. Mild tricuspid regurgitation. Pulmonic Valve Structurally normal pulmonic valve. Trace pulmonic regurgitation. Pericardium No pericardial effusion. Aorta Normal size aortic root and proximal ascending aorta. CONCLUSIONS Normal LV systolic function Mildly dilated RV with normal function Mildly thickened aortic valve Normal pulmonary artery systolic pressure No pericardial effusion Previewed by: Dr. Kuldip Friedman MD (Electronically Signed) Final Date: 24 December 2024 14:41
--- NOTE | 2024-12-24 23:38 | CC ---
CARDIAC CATHETERIZATION REPORT INDICATION: Non ST-segment elevation MS. PROCEDURE NOTE: After obtaining informed consent, left heart catheterization and coronary angiogram were performed via the right femoral artery using standard Husam catheters. The patient tolerated the procedure well without any obvious immediate complications. Total sedation time was 30 minutes. Right femoral arterial access was obtained using Seldinger technique, 6-Monegasque sheath was placed. Catheters and wires were floated into the ascending aorta under fluoroscopic guidance. I initially attempted cardiac catheterization via the right radial artery. I obtained vascular access. However, we could not manipulate the Husam catheter into his brachial artery even though we were able to pass the Glidewire all the way into the ascending aorta. Due to this, I aborted the radial approach and proceeded to complete the procedure via the femoral approach. Total sedation time was 30 minutes. FINDINGS: 1. Hemodynamics: Left ventricular end-diastolic pressure is 16 mm. There is no significant gradient across the aortic valve. 2. Left ventriculogram: Left ventriculogram is not performed. 3. Angiographic data: a.Right coronary artery: Right coronary artery is a large dominant vessel that shows mild nonobstructive CAD. Left main coronary artery shows mild calcification, but is free of significant disease, divides into left anterior descending coronary artery and circumflex coronary artery. Circumflex coronary artery appears subtotally occluded proximally and this may be the reason why the patient had the MS. LAD shows mild nonobstructive disease involving the proximal LAD. 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 PLAN: The patient will undergo angioplasty with stent placement of the same by Dr. Yee, the on-call brand mgr. MMODL / IJN: [id number] /
[2024-12-25] MEDS: ASPIRIN 325 MG TAB PO ONE (05:56)
[2024-12-25] MEDS: ATORVASTATIN 80 MG TAB PO STA (05:57)
[2024-12-25] MEDS: ASPIRIN 325 MG TAB PO STA (06:01)
[2024-12-25] MEDS: fentaNYL (PF) 50 MCG/ML 2 ML AMP IVP ONE (08:07)
[2024-12-25] MEDS: IV FLUID CONTINUATION 1,000 ML IV ONE (08:07)
[2024-12-25] MEDS: HEPARIN SODIUM,PORCINE 10,000 UNIT in SODIUM CHLORIDE 0.9% 1,000 ML IRRIGATION PRN (08:11)
[2024-12-25] MEDS: HEPARIN SODIUM,PORCINE (1 ML) 2,500 UNIT in SODIUM CHLORIDE 0.9% 250 ML IRRIGATION PRN (08:11)
[2024-12-25] MEDS: LIDOCAINE 1% INJ 10MG/ML (20 ML MDV) SQ ONE (08:11)
[2024-12-25] MEDS: VERAPAMIL SYRINGE (5 MG/10 ML) INTRAARTER ONE (08:12)
[2024-12-25] MEDS: HEPARIN SODIUM 1,000 UN/ML (10ML VL) IV ONE ×2 (08:28→09:43)
[2024-12-25 09:04] LABS: Basophils % (A) 0 %; Eosinophils # (A) 0.2 k/uL (0-0.7); Eosinophils % (A) 2 %; Lymphocytes # (A) 1.7 k/uL (1.0-4.8); Lymphocytes % (A) 19 %; MCH 28.3 pg (25.0-35.0); MCHC 31.6 g/dL (31.0-37.0); MCV 89.4 fL (80.0-100.0); Mean Platelet Volume 7.8; Monocytes # (A) 0.6 k/uL (0-1.0); Monocytes % (A) 6 %; Neutrophils # (A) 6.5 k/uL (1.3-7.7); Neutrophils % (A) 71 %; Platelet Count 190 k/uL (150-450); RBC 4.58 m/uL (4.30-5.90); RDW 13.9 % (11.5-15.5); WBC 9.2 k/uL (3.8-10.6)
[2024-12-25] MEDS: IOPAMIDOL-370 100ML BTL INJ ONE ×2 (09:05→09:55)
[2024-12-25] MEDS: NITROGLYCERIN 1000MCG/10ML SYRINGE INTRACORON ONE (09:08)
[2024-12-25 09:22] LABS: African American GFR (CKD) 66 (>60 ml/min/1.73 sqM); Anion Gap 8 mmol/L; Blood Urea Nitrogen 25 mg/dL (9-20); Calcium 8.8 mg/dL (8.4-10.2); Carbon Dioxide 27 mmol/L (22-30); Chloride 101 mmol/L (98-107); Glucose 94 mg/dL (74-99); Non-African American GFR(CKD) 57 (>60 ml/min/1.73 sqM); Sodium 136 mmol/L (137-145)
[2024-12-25] MEDS: NOREPINEPHRINE 4 MG in SODIUM CHLORIDE 0.9% 250 ML IV ONE (09:23)
[2024-12-25] MEDS ORDERED: MAG HYDROX/AL HYDROX/SIMETH 30 ML CUP PO PRN (10:12)
[2024-12-25] MEDS ORDERED: ATROPINE SULFATE 0.1 MG/ML 10ML SYRINGE IV PRN (10:12)
[2024-12-25] MEDS ORDERED: ZOLPIDEM 5 MG TAB PO PRN (10:12)
[2024-12-25] MEDS ORDERED: NITROGLYCERIN SL TABS 0.4 MG TAB SUBLINGUAL PRN (10:12)
[2024-12-25] MEDS ORDERED: RX INFO: IV CONTRAST WAS GIVEN 1 EACH MISC MISCELLANE PRN (10:12)
--- NOTE | 2024-12-25 10:23 | P.CARDCATH ---
Date of Procedure: 12/25/24 Description of Procedure: PERCUTANEOUS TRANSLUMINAL CORONARY ANGIOPLASTY CLINICAL INFORMATION: The patient is a 69-year-old male with known history of hypertension and hyperlipidemia who presented with non-STEMI, underwent coronary angiography by Dr. Covarrubias and was found to subtotally occluded proximal left circumflex, calcified, attempt to cannulate the left main on that day to proceed with angioplasty and stenting were unsuccessful, and because of the dye load the decision was made to bring him electively to undergo attempted stenting of the left circumflex. Recommendations were made regarding angioplasty and stenting. The procedure as well as the risks and the complications were discussed with the patient who was in full understanding and agreement. PROCEDURE: The patient was brought to the [facility] in the fasting semisedated state after receiving fentanyl and Benadryl and using Xylocaine anesthesia in the Seldinger technique a 6 [place]an sheath was introduced in the left radial artery. A 6 [place] CLS 3.5 guiding catheter was introduced into the system. After cannulating the left main, attempt to advance a 0.014 BMW J-wire and subsequently a whisper J-wire with the help of a Corsair microcatheter when unsuccessful because of the acute angulation at the takeoff of the left circumflex. A 0.014 whisper J was advanced across the lesion and positioned distally with the help of a 45 degree fine cross microcatheter. The microcatheter was advanced distally and the wire was exchanged to a 0.014 BMW J- wire and the microcatheter was removed. Following that a 1.5 x 12 mm trek balloon was advanced and inflated at 12 atmosphere. Multiple inflations were done. Subsequently a 2.5 x 12 mm trek balloon was advanced and inflation at 10 corwin were done. Following that a 2.5 x 15 Xience tri point stent was deployed. It was dilated at 18 corwin. After removing the balloon there was evidence of significant disease in the mid portion of the left circumflex. Attempt to advance the 2.5 x 12 mm NC trek balloon were unsuccessful at that point the balloon was removed and a 6 [place]an guide liner was advanced and a 2.0 x 12 mm trek balloon was advanced with the help of the guide liner and inflated at 20 corwin, after removing the balloon a 2.5 x 12 mm NC trek balloon was advanced and 2 inflations at 12 cowrin were done. After removing the balloon a 2.5 x 15 mm Xience tri point stent was advanced and deployed at 16 corwin. After removing the balloons attempt to advance a [place] eye IVUS across the proximal lesion were unsuccessful because of the severe tortuosity out of the left main. The catheter was removed and a 2.75 x 12 mm NC trek balloon was advanced proximally and dilated at 12 corwin. A after the last inflation, after appropriate wait, the balloon and the guidewire were withdrawn back into the guiding catheter. Images were obtained and repeated. Those images reveal stable successful stenting. At that point, the guiding catheter, the balloon, and guidewire were removed. The sheath was removed. Hemostasis was obtained with deployment of a TR band. There were no immediate complications. The patient was returned to the room in stable condition. Of note, the patient received 10,500 units of heparin as well as continued on Plavix. His ACT was followed. There was no immediate complications. He had no chest discomfort or EKG changes with the inflations. RESULTS: Successful stenting of the proximal left circumflex with reduction of stenosis from 99% to less than 5% with RIGOBERTO-3 flow and a very tortuous left circumflex and calcified. Successful stenting of the mid left circumflex with reduction of stenosis from 90% to less than 5% with RIGOBERTO-3 flow. RECOMMENDATIONS: The patient will continue on aspirin and clopidogrel without any interruption for 1 year in addition to aggressive coronary risks modifications, maintaining LDL to less than 70 mg/dL. The findings and recommendations were discussed with the patient and the family, they are in full understanding and agreement. Duration of sedation: 105 minutes
[2024-12-25] MEDS: SODIUM CHLORIDE 0.9% 1,000 ML in EMPTY BAG 1 BAG IV SCH (10:39)
[2024-12-25 11:42] LABS: Glucose,Whole Blood 134 mg/dL (70-110)
--- NOTE | 2024-12-25 14:08 | P.PN ---
Subjective Progress Note Date: 12/25/24 Hospital Course: Patient is a this is a 69-year-old male with a history of hypertension presents the ER with sudden onset substernal chest pain which woke him up around 9 PM yesterday evening. Patient reports that he felt pressure-like substernal chest pain, 9 out of 10, nonradiating, associated with mild shortness of breath and feeling cold. Patient has been experiencing intermittent chest pain for the past couple months associated with exertion. Patient reports that he fell substernal chest pain in the gym while he was doing elliptical exercise. Patient had a cardiac evaluation 3 to 4 years ago done by Dr. Fuller where he found to have LAD pathology. Patient denies any history of CAD and or CVA. Strong family history of [place] and stroke in father and brother. Patient is a chronic cigarette smoker. Drinks alcohol occasionally. Denies use of recreational drugs. Initial laboratory evaluation shows troponin I 0.096, 0.346, 0.294. WBC 10.1, hemoglobin 14.7, platelet count 221, sodium 137, potassium 4.4, chloride 104, bicarb 25, BUN 35, creatinine 1.1. EKG shows sinus rhythm with ventricular rate of 78 bpm, RI interval 194, QRS duration 85, QTc 4 6. Poor R wave progression. Nonspecific ST/T wave changes noted. Chest x-ray shows no acute cardiopulmonary process. Vital signs on arrival shows temperature 98.3 F, pulse rate 87, blood pressure 158/105, oxygen saturation 98% on room air. Cardiology was consulted. Cardiac catheterization showed subtotally occluded proximal left circumflex. Patient underwent an unsuccessful cannulation of the left main artery and because of the contrast threshold the procedure was stopped on 12/23/2024. Subjective: Patient seen and examined at the bedside. Patient underwent stenting of the proximal and mid left circumflex this morning. No postop complication. Patient stable and denies chest pain, shortness of breath. All Systems reviewed and pertinent positives and negatives noted in HPI, all other symptoms are negative Objective: Vital signs reviewed. General: non toxic, no distress, appears at stated age, normal weight Derm: no unusual rashes/lesions, warm Head: atraumatic, normocephalic, symmetric Eyes: EOMI, no lid lag, anicteric sclera, pupils equal round reactive to light ENT: Nose and ears atraumatic Neck: No cervical lymphadenopathy, trachea midline, supple Mouth: no lip lesion, mucus membranes moist Cardiovascular: S1S2 reg, no murmur, positive dorsalis pedis pulse bilateral, no edema Lungs: CTA bilateral, no rhonchi, no rales, no accessory muscle use Abdominal: soft, nontender to palpation, no guarding Ext: muscle strength 5 out of 5 in all 4 extremities grossly, no gross muscle atrophy, no contractures, Neuro: CN II-XI grossly intact, no gross focal neuro deficits Psych: Alert, oriented, appropriate affect Data reviewed today: Pertinent Labs: WBC 9.2, hemoglobin 13.0, sodium 136, BUN 25, creatinine 1.29 Images: No new imaging Assessment and Plan: #NSTEMI status post proximal and mid left circumflex stent Aspirin 81 mg p.o. daily and Plavix 75 mg p.o. daily Lipitor 80 mg p.o. at bedtime IV morphine 4 mg as needed Oxygen therapy as needed Carvedilol 25 mg p.o. twice daily Cardiology on board; note reviewed, appreciate recs Echocardiogram done on 12/24/2024 shows LVEF of 60 to 65% with normal LV function. Heart healthy diet BMP tomorrow a.m. #Hypertension Discontinue amlodipine 10 mg p.o. daily Continue Lisinopril-HCTZ 20-25 mg p.o. daily DVT prophylaxis: None GI prophylaxis: None F: None E: Replete as needed N: Heart healthy diet A: Ambulatory at baseline CODE STATUS: Full code Discussed with: Patient Anticipated discharge place: Pending clinical course Dictation was produced using [employer] dictation software. Please excuse any grammatical, word or spelling errors. Objective - Vital Signs Vital signs: Vital Signs Temp 98.0 F 12/25/24 10:27 Pulse 69 12/25/24 07:42 Resp 17 12/25/24 10:27 BP 103/68 12/25/24 10:27 Pulse Ox 95 12/25/24 10:27 FiO2 Intake & Output 12/24/24 12/25/24 12/25/24 18:59 06:59 18:59 Intake Total 480 500 608 Output Total 300 Balance 480 200 608 Weight 97.5 kg Intake: IV 608 Oral 480 500 Output: Urine 300 Other: Voiding Method Urinal Urinal - Labs CBC & Chem 7: 12/25/24 07:26 12/25/24 07:26 Labs: Abnormal Lab Results - Last 24 Hours (Table) 12/25/24 12/25/24 Range/Units 07:26 11:40 Sodium 136 L (137-145) mmol/L BUN 25 H (9-20) mg/dL Creatinine 1.29 H (0.66-1.25) mg/dL POC Glucose (mg/dL) 134 H (70-110) mg/dL
[2024-12-25 14:18] VITALS: BMI 31.7
[2024-12-25 16:35] LABS: Glucose,Whole Blood 111 mg/dL (70-110)
[2024-12-25 20:15] VITALS: RESP 17
[2024-12-26 08:38] VITALS: TEMP 97.5
[2024-12-26 09:13] LABS: African American GFR (CKD) 72 (>60 ml/min/1.73 sqM); Anion Gap 6 mmol/L; Blood Urea Nitrogen 19 mg/dL (9-20); Calcium 8.6 mg/dL (8.4-10.2); Carbon Dioxide 27 mmol/L (22-30); Chloride 102 mmol/L (98-107); Glucose 119 mg/dL (74-99); Non-African American GFR(CKD) 62 (>60 ml/min/1.73 sqM); Sodium 135 mmol/L (137-145)
[2024-12-26 11:22] VITALS: BP 125/59; PULSE 62
--- NOTE | 2024-12-26 11:31 | P.PN ---
Subjective Progress Note Date: 12/26/24 HISTORY OF PRESENT ILLNESS: This is a 69-year-old male with a past medical history significant for hype rtension, carotid stenosis with previous right carotid endarterectomy, and occasional cigar use. Patient follows in the office with Dr. Covarrubias. We have been asked to see the patient in consultation for non-STEMI. Patient examined at the bedside in the emergency room. Patient states he was sleeping when he was awoken with chest discomfort. He states that he was having chest pressure in the middle of his chest that radiated into his right arm. He also reports feeling short of breath. He states the pain lasted for about 45 minutes. He decided to come to the emergency room for further evaluation. Patient was found to have elevated troponins and was started on IV heparin. He denies any further episodes of chest discomfort since being in the hospital. Patient recently established in the office with Dr. Covarrubias and was supposed to follow-up today in the office for results of his stress test and carotid Doppler DIAGNOSTICS: - EKG reveals sinus mechanism with no signs of acute ischemia. Baseline artifact.. - Chest xray negative for acute process. - Laboratory data: WBC 10.1. Hemoglobin 14.7. Platelet count 221. Sodium 137. Potassium 4.4. BUN 35. Creatinine 1.11. Magnesium 2.2. Troponin 0.096. 0.346. - Current home cardiac medications include aspirin 81 mg daily, atorvastatin 40 mg at night, carvedilol 25 mg twice a day, and enalaprilhydrochlorothiazide 10- 25 mg daily. - Carotid Doppler performed in the office on 12/10/2024 revealed less than 50% stenosis of bilateral internal carotid arteries 12/24 Patient seen and examined on the cardiac stepdown unit. Yesterday, patient underwent cardiac catheterization with Dr. Covarrubias finding subtotally occluded proximal left circumflex. It was recommended the patient undergo angioplasty and stenting. There was unsuccessful cannulation of the left main and due to the contrast threshold, the procedure was stopped and patient will be rescheduled tomorrow for PCI with Dr. Yee. Patient denies having chest pain, no shortness of breath, no lightheadedness or dizziness. Blood pressure 113/57, heart rate 64, pulse ox 97% on room air. Repeat blood work reveals WBC 11.9, hemoglobin 13.2, BUN 21 creatinine 1.07. Echocardiogram is pending. 12/26 Patient seen and examined. Yesterday he underwent successful stenting of the proximal left circumflex and successful stenting of the mid left circumflex. Patient has been continued on aspirin, Plavix with intention for 1 year without interruption. Patient denies having chest pain or chest pressure. No shortness of breath. No lightheadedness or dizziness. Blood pressure 125/59, heart rate 62, pulse ox 98% on room air. Repeat blood work reveals BUN 19 creatinine 1.2. Echocardiogram results reviewed with the patient. Echocardiogram reveals EF 60 to 65%. PHYSICAL EXAM: VITAL SIGNS: Reviewed. GENERAL: Well-developed in no acute distress. HEENT: Head is normocephalic. Pupils are equal, round. Sclerae anicteric. Mucous membranes of the mouth are moist. Neck supple. No JVD or thyromegaly LUNGS: Respirations even and unlabored. Lungs essentially clear to auscultation bilaterally. HEART: Regular rate and rhythm. S1 and S2 heard. ABDOMEN: Soft. Nondistended. Nontender. EXTREMITIES: Normal range of motion. No clubbing or cyanosis. Peripheral pulses intact. No lower extremity edema NEUROLOGIC: Awake and alert. Oriented x 3. ASSESSMENT: Non-STEMI Hypertension History of carotid stenosis with previous right carotid endarterectomy, 2017 Occasional cigar use PLAN: Continue home cardiac medications including aspirin, atorvastatin, carvedilol, and enalaprilhydrochlorothiazide Continue the addition of Zetia Patient is cleared for discharge from cardiology and may follow-up in the office with Dr. Covarrubias in 1 week. Nurse practitioner note has been reviewed by physician. Signing provider agrees with the documented findings, assessment, and plan of care documented by BICYCLE COURIER as a scribe. Objective - Vital Signs Vital signs: Vital Signs Temp 97.5 F L 12/26/24 08:30 Pulse 69 12/26/24 08:30 Resp 17 12/26/24 08:30 BP 117/65 12/26/24 08:30 Pulse Ox 97 12/26/24 08:30 FiO2 Intake & Output 12/25/24 12/26/24 12/26/24 18:59 06:59 18:59 Intake Total 1488 300 240 Output Total 600 Balance 888 300 240 Weight 97.5 kg 97.8 kg Intake: IV 608 Intake, IV Titration 400 Amount Sodium Chloride 0.9% 1, 400 000 ml In Empty Bag 1 bag @ 1 ML/KG/HR 97.5 mls/hr IV .[id number] [facility] Rx#: [id number] Oral 480 300 240 Output: Urine 600 Other: Voiding Method Urinal Urinal # Voids 2 - Labs CBC & Chem 7: 12/25/24 07:26 12/26/24 08:21 Labs: Abnormal Lab Results - Last 24 Hours (Table) 12/25/24 12/25/24 12/26/24 Range/Units 11:40 16:34 08:21 Sodium 135 L (137-145) mmol/L Glucose 119 H (74-99) mg/dL POC Glucose (mg/dL) 134 H 111 H (70-110) mg/dL
--- NOTE | 2024-12-28 09:26 | P.DS ---
Providers Date of admission: 12/23/24 03:26 Attending physician: Kendell Galvan Consults: 12/23/24 07:40 Consult Physician Stat Consulting Provider: Kuldip Friedman Consult Reason/Comments: elevated troponin Do you want consulting provider notified?: Yes 12/25/24 10:12 Consult Physician Routine Consulting Provider: [facility] Consult Reason/Comments: Post Interventional Patient Do you want consulting provider notified?: Already Contacted Primary care physician: Luis Gutiérrez DO Hospital Course: Final Diagnosis NSTEMI status post stent to the proximal and mid left circumflex Hypertension Chronic nicotine use Discharge Disposition Patient is stable for discharge home. Patient will continue dual antiplatelet therapy with aspirin and Plavix. Patient has been started on Zetia milligrams daily. Patient will continue on high-dose statin therapy. Patient to follow-up with his teller head Dr. Estrada in 2 weeks and follow-up with his PCP Dr. Luis Gutiérrez in 1 to 2 days. Hospital Course This is a 69-year-old male with history of hypertension presents to the ER with sudden onset of substernal chest pain which woke him up in the evening the day before admission. Patient was reporting 9 of 10 nonradiating pain with had some associated shortness of breath. Patient was also feeling cold. Patient does state that he has been experiencing intermittent chest pain for the past couple months with exertion. Patient did have a cardiac evaluation 3 to 4 years ago where he was found to have an LAD pathology. Patient denies any history of CAD or stroke. Patient does have a strong family history of MD and stroke in his father and brother. He does smoke cigarettes. Patient had a positive troponin levels of 0.0960.346 and 0.294. EKG reveals normal sinus rhythm with ventricular rate of 78 there is some nonspecific ST and T wave changes noted. Chest x-ray was negative for acute cardiopulmonary process on admission. Patient was admitted to the hospital to consult placed to cardiology. Patient underwent cardiac catheterization which revealed a subtotally occluded proximal left circumflex. Patient underwent an unsuccessful cannulation of left main artery because of the contrast/of the procedure was stopped. Patient returned to the Director Internal Audit and underwent successful stenting of the proximal and mid left circumflex. Echocardiogram reveals an EF of 60 to 65% with mildly dilated right ventricular with normal function, mildly thickened aortic valve, normal pulmonary artery systolic pressure. No pericardial effusion. Patient is afebrile heart rate of 62 normal sinus rhythm blood pressure 125/59 and he is 90% on room air. Please see medication reconciliation for a list of current medications. Thank you for allowing us to partici Continued on dual antiplatelet therapy with aspirin and Plavix and was started on [email or web address] in the care of this patient. The impression and plan of care has been dictated by Rachel Jane, Nurse Practitioner as directed. Dr. Elvin MD I have performed a history and physical examination and medical decision making of this patient, discussed the same with the dictator, and agree with the dictators assessment and plan as written, documented as a scribe. Based on total visit time, I have performed more than 50% of this visit. Patient Condition at Discharge: Stable Plan - Discharge Summary Discharge Rx Participant: Yes New Discharge Prescriptions: New Ezetimibe [Zetia] 10 mg PO DAILY #30 tab Continue Clopidogrel [Plavix] 75 mg PO DAILY Atorvastatin [Lipitor] 80 mg PO DAILY carvediloL [Coreg] 25 mg PO BID Enalapril/Hydrochlorothiazide [Vaseretic 10-25 mg Tablet] 2 tab PO DAILY Nitroglycerin Sl Tabs [Nitrostat] 0.4 mg SUBLINGUAL Q5M PRN PRN Reason: Chest Pain Aspirin EC [Ecotrin Low Dose] 81 mg PO DAILY Discharge Medication List Aspirin EC [Ecotrin Low Dose] 81 mg PO DAILY 12/23/24 [History] Atorvastatin [Lipitor] 80 mg PO DAILY 12/23/24 [History] Clopidogrel [Plavix] 75 mg PO DAILY 12/23/24 [History] Enalapril/Hydrochlorothiazide [Vaseretic 10-25 mg Tablet] 2 tab PO DAILY 12/23/24 [History] Nitroglycerin Sl Tabs [Nitrostat] 0.4 mg SUBLINGUAL Q5M PRN 12/23/24 [History] carvediloL [Coreg] 25 mg PO BID 12/23/24 [History] Ezetimibe [Zetia] 10 mg PO DAILY #30 tab 12/26/24 [Rx] Follow up Appointment(s)/Referral(s): Luis Gutiérrez DO [Primary Care Provider] - 1-2 days Jaziel Covarrubias MD [STAFF PHYSICIAN] - 2 Weeks Patient Instructions/Handouts: Safe Use of Antiplatelet Medication (DC), After Radial Heart Catheterization (GEN) Activity/Diet/Wound Care/Special Instructions: do not submerge wrist in water avoid lifting anything heavier than 10 pounds for 1 week avoid bending/flexing the left wrist Discharge Disposition: HOME SELF-CARE
== END 2024-12-26 14:43 | disposition home or self-care (01) | DRG 322 ==
LOC: EC 00:09 → 1SOBS 03:26 → 3SCARD 15:28
PROVIDERS: ADMIT Internal Medicine; ATTEND Internal Medicine
PROC: 02JY3ZZ Inspection of Great Vessel, Percutaneous Approach (ICD-10-PCS; 2024-12-23)
PROC: 4A023N7 Measurement of Cardiac Sampling and Pressure, Left Heart, Percutaneous Approach (ICD-10-PCS; 2024-12-24)
PROC: B2111ZZ Fluoroscopy of Multiple Coronary Arteries using Low Osmolar Contrast (ICD-10-PCS; 2024-12-24)
PROC: B240ZZ3 Ultrasonography of Single Coronary Artery, Intravascular (ICD-10-PCS; 2024-12-25)
PROC: 027034Z Dilation of Coronary Artery, One Artery with Drug-eluting Intraluminal Device, Percutaneous Approach (ICD-10-PCS; principal; 2024-12-25 08:00)
DX: I21.4 Non-ST elevation (NSTEMI) myocardial infarction (principal); E78.5 Hyperlipidemia, unspecified; I10 Essential (primary) hypertension; I65.29 Occlusion and stenosis of unspecified carotid artery; F17.210 Nicotine dependence, cigarettes, uncomplicated; I25.10 Atherosclerotic heart disease of native coronary artery without angina pectoris; Z79.82 Long term (current) use of aspirin; Z82.3 Family history of stroke; Z82.49 Family history of ischemic heart disease and other diseases of the circulatory system
CPT/HCPCS: 36415; 71046; 80048; 80053; 80061; 83036; 83690; 83735; 84484; 85025; 85610; 85730; 93005; 93306; 96365; 96366; 96368; 99285

== ENCOUNTER → 2025-01-06 | Outpatient (CLI) | payer MEDICARE ==
[2025-01-06 14:53] LABS: ALT 23 U/L (10-49); AST 21 U/L (14-35); Chol/HDL Ratio 2.65 Ratio; LDL Cholesterol,Calculated 41.5 mg/dL (0.0-131.0); VLDL Calculation 15.76 mg/dL (5.00-40.00)
== END | disposition home or self-care (01) ==
LOC: LABWHC1 07:58
PROVIDERS: ATTEND Internal Medicine Cardiovascular Disease
DX: E78.2 Mixed hyperlipidemia (principal)
CPT/HCPCS: 36415; 80061; 84450; 84460